=== PATIENT | female | born 1970 | race Two or more races ===

== ENCOUNTER 2016-11-15 05:04 | Emergency (ER) | payer MEDICAID ==
[~2016-11-15] VITALS: Ht 154.9 cm; Wt 65.8 kg
[~2016-11-15 05:04] MED LIST: AMOXICILLI200 MG/5 M PO; ERYTHROMYCIN3.5 GM LEFT EYE; GABAPENTIN300 MG ORAL; KEFLEX500 MG ORAL
[2016-11-15 05:23] VITALS: BP 110/69
--- NOTE | 2016-11-15 05:35 | Emergency Room Report ---
History of Present Illness General Chief Complaint: Abdominal Pain Source: Patient Present Illness HPI Is a 46-year-old female with a history of hysterectomy and abdominal reconstructive surgery. Patient presents with chief complaint abdominal pain. It woke her up at 2 AM. Sharp and crampy. Gassy. Nauseous but no vomiting. No diarrhea. Pain is localized to the right flank area. No dysuria frequency. No fever or chills. It is 01/19 Allergies: Coded Allergies: No Known Allergies (Unverified , 03/26/16) Patient History Past Medical History: see triage record, old chart reviewed Past Surgical History: hysterectomy Pertinent Family History: none Social History: Denies: smoking Last Menstrual Period: N/A Now: No Immunizations: other Reviewed Nursing Documentation: PMH: Agreed, PSxH: Agreed Review of Systems Eye: Denies: blurred vision, eye pain ENT: Denies: ear pain, nose congestion, throat swelling Respiratory: Denies: cough, shortness of breath Cardiovascular: Denies: chest pain, palpitations Gastrointestinal: Reports: abdominal pain, Denies: diarrhea, nausea, vomiting Musculoskeletal: Denies: back pain, joint pain Skin: Denies: rash Neurological: Denies: headache, numbness Endocrine: Denies: increased thirst, increased urine Hematologic/Lymphatic: Denies: easy bruising All Other Systems: negative except mentioned in HPI Physical Exam Vital Signs Date Time Temp Pulse Resp B/P Pulse Ox O2 Delivery O2 Flow Rate FiO2 11/15/16 05:14 97.9 73 18 110/69 98 Room Air vitals normal Sp02 EP Interpretation: reviewed, normal General Appearance: well appearing, no apparent distress, alert Head: normocephalic, atraumatic Eyes: bilateral eye EOMI, bilateral eye PERRL ENT: hearing grossly normal, normal pharynx Neck: full range of motion, supple, no meningismus Respiratory: chest non-tender, lungs clear, normal breath sounds Cardiovascular #1: regular rate, rhythm, no murmur Gastrointestinal: normal bowel sounds, non tender, no mass, no organomegaly, no bruit, non-distended Musculoskeletal: back normal, gait/station normal, normal range of motion Psychiatric: mood/affect normal Skin: warm/dry Medical Decision Making Diagnostic Impression: Primary Impression: Abdominal pain Qualified Codes: R10.84 - Generalized abdominal pain ER Course Patient with abdominal pain. No evidence of obstruction or acute abdomen. No evidence of appendicitis. Pain is lower abdomen. No evidence of gallstone on my exam. Negative Bagley sign. Labs unremarkable. No evidence of UTI. We'll discharge him. Lab Results Impression labs normal CT/MRI/US Diagnostic Results CT/MRI/US Diagnostic Results : Imaging Test Ordered: CT abdomen and pelvis Impression read by radiologist. Negative. Last Vital Signs Date Time Temp Pulse Resp B/P Pulse Ox O2 Delivery O2 Flow Rate FiO2 11/15/16 05:23 97.9 73 18 110/69 98 Room Air Status: improved Disposition: HOME, SELF-CARE Condition: Stable Scripts Naproxen* (NAPROSYN*) 500 Mg Tablet 500 MG ORAL TWICE A DAY, #20 TAB Prov: FORTINO AGUIRRE M.D. 11/15/16 Patient Instructions: Abdominal Pain, Adult Additional Instructions: Followup with your Dr. in 2-3 days. Return if symptom worsen. FORTINO AGUIRRE M.D. Nov 15, 2016 05:35
[2016-11-15] MEDS ORDERED: Ketorolac 30mg Inj IV ONE (05:45)
[2016-11-15 05:46] LABS: APPEARANCE,URINE CLEAR; KETONES,URINE NEGATIVE (NEGATIVE); LEUKOCYTE ESTERASE ,URINE 1+ (NEGATIVE); NITRITE,URINE NEGATIVE (NEGATIVE); PH,URINE 6 (4.5-8.0); PROTEIN,URINE NEGATIVE (NEGATIVE); UROBILINOGEN,URINE NORMAL MG/DL (0.0-1.0)
[2016-11-15 05:52] LABS: RBC,URINE 0-2 /HPF (0 - 2); SQUAMOUS EPITHELIAL CELL,UR FEW /LPF (NONE/OCC)
[2016-11-15 05:53] LABS: BASOPHILS % (AUTO) 1.6 % (0.0-2.0); EOSINOPHILS % (AUTO) 2.5 % (0.0-3.0); MEAN CORPUSCULAR HGB CONC 33.4 G/DL (32.0-36.0); MEAN CORPUSCULAR VOLUME 90 FL (80-99); MEAN PLATELET VOLUME 8.6 FL (6.5-10.1); MONOCYTES % (AUTO) 6.7 % (1.0-10.0); NEUTROPHILS % (AUTO) 52.2 % (45.0-75.0); PLATELET COUNT 180 K/UL (150-450); RED BLOOD COUNT 4.05 M/UL (4.20-5.40); RED CELL DISTRIBUTION WIDTH 12.3 % (11.6-14.8); WHITE BLOOD COUNT 5.8 K/UL (4.8-10.8)
[2016-11-15 06:00] VITALS: BP 114/64
[2016-11-15 06:22] LABS: ALANINE AMINOTRANSFERASE 10 U/L (3-33); ALBUMIN/GLOBULIN RATIO 1.3 (1.0-2.7); ANION GAP 14 (5-15); ASPARTATE AMINO TRANSFERASE 14 U/L (5-40); CALCIUM 9.3 mg/dL (8.6-10.2); CARBON DIOXIDE 26 mEQ/L (20-30); CHLORIDE 99 mEQ/L (98-107); CREATININE 0.7 mg/dL (0.5-0.9); GLOMERULAR FILTRATION RATE > 60 mL/min (>60); HEMOLYSIS 8; LIPASE 34 U/L (< 60); POTASSIUM 3.7 mEQ/L (3.4-4.9); SODIUM 139 mEQ/L (135-145); TOTAL PROTEIN 7.5 g/dL (6.6-8.7)
[2016-11-15] MEDS ORDERED: NAPROSYN500 M1 ORAL (06:26)
[2016-11-15 06:29] VITALS: BP 114/64
--- NOTE | 2016-11-15 09:21 | Diagnostic Imaging Report ---
Indication: Abdominal pain Technique: Continuous helical transaxial imaging of the abdomen and pelvis was obtained from the lung bases to the pubic symphysis. No intravenous contrast was administered. Coronal 2-D reformats were also obtained. Total Dose length Product (DLP): [address] Dose Index Volume (CTDIvol): 15 mGy Comparison: None Findings: Lung bases are clear. Gallbladder is unremarkable. There is no nephrolithiasis. No hydronephrosis demonstrated. Bladder is nondistended. Small radiopaque foci noted in the abdominal wall consistent with previous abdominoplasty. Normal appendix demonstrated. No free fluid or free air demonstrated. Uterus is absent. Evaluation of solid organs is limited on this exam done without IV contrast. Few diverticula are noted in the colon. There is no evidence of diverticulitis. Impression: No acute findings appreciated. Status post abdominal wall surgery. Status post hysterectomy. Colonic diverticula The CT scanner at [facility] is accredited by the [employer] and the scans are performed using dose optimization techniques as appropriate to a performed exam including Automatic Exposure control.
== END 2016-11-15 06:31 | disposition home or self-care (01) ==
LOC: EMR 05:37
DX: R10.84 Generalized abdominal pain (principal); Z90.710 Acquired absence of both cervix and uterus
CPT/HCPCS: 36415; 74176; 80053; 81003; 83690; 85025; 96360; 96374; 96375; 99284; J1885; J2405

== ENCOUNTER 2017-01-22 13:05 | Emergency (ER) | payer MEDICAID ==
[~2017-01-22] VITALS: Ht 154.9 cm; Wt 65.3 kg
[~2017-01-22 13:05] MED LIST changes: +NAPROSYN500 M1 ORAL
[2017-01-22] MEDS ORDERED: SIMVASTATIN40 MG ORAL (13:15)
[2017-01-22 13:23] VITALS: BP 112/69
--- NOTE | 2017-01-22 13:27 | Emergency Room Report ---
History of Present Illness General Chief Complaint: Skin Rash/Abscess Source: Medical Record Present Illness HPI 46-year-old female presents to the emergency department complaining of new onset itchy rash to the face and jaw x2 days. Patient states that she was just recently started on new medication called doxepin for sleep. Patient states that after the first night of taking it she had small rash began on the forehead. Patient states she took medication for the second time in the rash progressed. Denies lesions/rashes elsewhere on the body. Denies new body washes or creams. Denies swelling of the lips, tongue , throat or airway. Denies wheezing, or shortness of breath. Denies recent travel, recent illness or ill contacts. denies blisters, oral lesions, or sloughing of the skin. Denies CP, Palpitations, LOC, AMS, dizziness, Changes in Vision, Sensation, paresthesias, or a sudden severe headache. Allergies: Coded Allergies: No Known Allergies (Unverified , 03/26/16) Patient History Past Medical History: see triage record Past Surgical History: none Pertinent Family History: none Last Menstrual Period: Post Now: No : 3 Para: 3 Reviewed Nursing Documentation: PMH: Agreed, PSxH: Agreed Nursing Documentation-PMH Past Medical History: No History, Except For Review of Systems All Other Systems: negative except mentioned in HPI Physical Exam Vital Signs Date Time Temp Pulse Resp B/P Pulse Ox O2 Delivery O2 Flow Rate FiO2 01/22/17 13:10 98.1 70 18 108/66 96 Room Air Sp02 EP Interpretation: reviewed, normal General Appearance: no apparent distress, alert, GCS 15, non-toxic Head: normocephalic, atraumatic Eyes: bilateral eye PERRL, bilateral eye normal inspection ENT: hearing grossly normal, normal pharynx, no angioedema, normal voice, uvula midline, moist mucus membranes, other - no swelling of the lips or tongue , no oral lesions noted. Neck: full range of motion Respiratory: lungs clear, normal breath sounds, no wheezing, speaking full sentences Cardiovascular #1: regular rate, rhythm, no edema Musculoskeletal: back normal, gait/station normal, normal range of motion Neurologic: alert, oriented x3, responsive, motor strength/tone normal, sensory intact, speech normal Psychiatric: judgement/insight normal, memory normal, mood/affect normal Skin: normal color, warm/dry, well hydrated, rash - multiple erythematous, plaques noted diffusely across the fore head, bilateral cheeks, and right jaw line, lesions are not confluent, no d/c, blisters or vessicles noted, no increased temperature to palpation, Lymphatic: no adenopathy Medical Decision Making PA Attestation Dr. rodarte is my supervising Physician whom patient management has been discussed with. Diagnostic Impression: Primary Impression: Rash and other nonspecific skin eruption ER Course Pt. presents to the ED c/o rash on the forehead, cheek and jaw x 2 days. after starting new medication. Ddx considered but are not limited to cellulitis, scabies, shingles, varicella, dermatitis, urticaria, eczema, tinea Vital signs: are WNL, pt. is afebrile H&PE are most consistent with rash of the face following new medication, no evidence of anaphylaxis or airway compromise. no evidence of secondary bacterial infection. ORDERS: none required at this time, the diagnosis is clinical ED INTERVENTIONS: None required at this time. -PT. education to d/c new medication and to contact prescribing pmd for follow up and change of medications. DISCHARGE: At this time pt. is stable for d/c to home. Will provide printed patient care instructions, and any necessary prescriptions. Care plan and follow up instructions have been discussed with the patient prior to discharge. Last Vital Signs Date Time Temp Pulse Resp B/P Pulse Ox O2 Delivery O2 Flow Rate FiO2 01/22/17 13:23 97.9 74 15 112/69 97 Room Air Disposition: HOME, SELF-CARE Condition: Stable Scripts Hydrocortisone (Hydrocortisone Cream 2.5%) Y Cream.appl 1 APPLIC TP BID, #28.3 GM Prov: Pam Diana 01/22/17 Diphenhydramine Hcl (BENADRYL ALLERGY) 25 Mg Tablet 25 MG PO Q6HR for 7 Days, #28 TAB Prov: Pam Diana 01/22/17 Patient Instructions: Rash Additional Instructions: Take medications as directed. *Discontinue Doxepin Follow up with a Primary Care Provider in 3-5 days, even if your symptoms have resolved. --Please review list of primary care clinics, if you do not already have a primary care provider Return sooner to ED if new symptoms occur, or current symptoms become worse. Do not drink alcohol, drive, or operate heavy machinery while taking Benadryl as this may cause drowsiness. - Please note that this Emergency Department Report was dictated using [employer] cleaner technology software, occasionally this can lead to erroneous entry secondary to interpretation by the dictation equipment. Pam Diana Jan 22, 2017 13:27
[2017-01-22] MEDS ORDERED: BENADRYL ALLERG25 M1 PO (13:28)
[2017-01-22] MEDS ORDERED: HYDROCORTISONE30 G2 TP (13:28)
[2017-01-22 13:36] VITALS: BP 112/69
== END 2017-01-23 13:36 | disposition home or self-care (01) ==
LOC: EMR 13:36
DX: R21 Rash and other nonspecific skin eruption (principal)
CPT/HCPCS: 99284

== ENCOUNTER 2017-09-24 10:36 | Emergency (ER) | payer MEDICAID ==
[~2017-09-24] VITALS: Ht 154.9 cm; Wt 65.8 kg
[~2017-09-24 10:36] MED LIST changes: +BENADRYL ALLERG25 M1 PO; +HYDROCORTISONE30 G2 TP; +SIMVASTATIN40 MG ORAL
[2017-09-24 10:54] VITALS: BP 123/70
[2017-09-24] MEDS ORDERED: ATORVASTATIN CA80 MG ORAL (10:55)
[2017-09-24] MEDS ORDERED: LORazepam Inj 2mg/ml 1ml IV ONE (11:00)
[2017-09-24 11:19] LABS: APPEARANCE,URINE CLEAR; BILIRUBIN, URINE NEGATIVE (NEGATIVE); COLOR,URINE PALE YELLOW; GLUCOSE, URINE (UA) NEGATIVE (NEGATIVE); KETONES,URINE NEGATIVE (NEGATIVE); LEUKOCYTE ESTERASE ,URINE NEGATIVE (NEGATIVE); NITRITE,URINE NEGATIVE (NEGATIVE); PH,URINE 7 (4.5-8.0); PROTEIN,URINE NEGATIVE (NEGATIVE); UROBILINOGEN,URINE NORMAL MG/DL (0.0-1.0)
[2017-09-24 11:20] LABS: BASOPHILS % (AUTO) 1.3 % (0.0-2.0); EOSINOPHILS % (AUTO) 1.3 % (0.0-3.0); HEMATOCRIT 37.2 % (37.0-47.0); HEMOGLOBIN 12.7 G/DL (12.0-16.0); MEAN CORPUSCULAR VOLUME 88 FL (80-99); MONOCYTES % (AUTO) 6.4 % (1.0-10.0); PLATELET COUNT 206 K/UL (150-450); RED BLOOD COUNT 4.24 M/UL (4.20-5.40); RED CELL DISTRIBUTION WIDTH 11.4 % (11.6-14.8); WHITE BLOOD COUNT 5.8 K/UL (4.8-10.8)
[2017-09-24 11:30] LABS: INR 0.9 (0.9-1.1)
[2017-09-24 11:33] LABS: ANION GAP 9 mmol/L (5-15); BLOOD UREA NITROGEN 14 mg/dL (7-18); CALCIUM 9.2 MG/DL (8.5-10.1); CARBON DIOXIDE 28 MMOL/L (21-32); CHLORIDE 101 MMOL/L (98-107); CREATININE 0.5 MG/DL (0.55-1.30); POTASSIUM 3.5 MMOL/L (3.5-5.1); SODIUM 138 MMOL/L (136-145)
[2017-09-24 11:39] LABS: ALANINE AMINOTRANSFERASE 32 U/L (12-78); ALBUMIN 3.9 G/DL (3.4-5.0); ALKALINE PHOSPHATASE 136 U/L (46-116); ASPARTATE AMINO TRANSFERASE 22 U/L (15-37); BILIRUBIN,TOTAL 0.6 MG/DL (0.2-1.0); CREATINE KINASE 104 U/L (26-308)
--- NOTE | 2017-09-24 13:44 | Emergency Room Report ---
History of Present Illness General Chief Complaint: Chest Pain Source: Patient Present Illness HPI The patient presents with chest pain and shortness of breath. Also she feels that her chest is collapsing on her and there is tingling around her mouth and hands. She has a lot of stress at this time. The patient also has indigestion feelings and has a history of reflux. She is supposed be taking omeprazole. The pain/pressure in her chest is rated at a 5/ 10, constant, not radiating. No fevers, cough, sore throat, calf pain, edema. She did not take any medications for this. This began at work. The patient had a hysterectomy and bilateral mastectomies for years ago due to positive family history and tumor markers. She's never had support after that and suffers from depression around this. She also never got any hormone replacement after the total hysterectomy. Her risk factors include high cholesterol. She does not smoke has no diabetes and is not treated for hypertension. She states she is safe at home. Allergies: Coded Allergies: NIACIN (Verified Allergy, Unknown, 09/24/17) Uncoded Allergies: UNKNOWN ANTIBIOTIC (Allergy, Unknown, 09/24/17) Patient History Past Medical History: see triage record Past Surgical History: hysterectomy, other - bilateral masectomies Pertinent Family History: other - breast and ovarian cancer Social History: Denies: smoking, alcohol use, drug use Social History Narrative working Last Menstrual Period: Hysterectomy Reviewed Nursing Documentation: PMH: Agreed; PSxH: Agreed Review of Systems All Other Systems: negative except mentioned in HPI Physical Exam Vital Signs Date Time Temp Pulse Resp B/P (MAP) Pulse Ox O2 Delivery O2 Flow Rate FiO2 09/24/17 10:44 98.2 66 17 114/68 95 Room Air 98.2 Sp02 EP Interpretation: reviewed, normal General Appearance: well appearing, no apparent distress, GCS 15 Head: normocephalic Eyes: bilateral eye normal inspection, bilateral eye PERRL ENT: moist mucus membranes Neck: supple Respiratory: chest non-tender, lungs clear, normal breath sounds, other - masectomies Cardiovascular #1: regular rate, rhythm Cardiovascular #2: 2+ radial (R) Gastrointestinal: normal inspection, normal bowel sounds, non tender, no mass, non-distended Musculoskeletal: back normal, gait/station normal, normal range of motion Neurologic: alert, oriented x3, grossly normal Psychiatric: depressed affect, anxious Skin: normal inspection, warm/dry Medical Decision Making Diagnostic Impression: Primary Impression: Chest pain Qualified Codes: R07.9 - Chest pain, unspecified Additional Impressions: Hyperventilation Anxiety and depression S/P hysterectomy and bilateral masectomy ER Course Patient presents with chest pressure and tingling. DDx: AMI, ACS, costochondritis, PE, anxiety, hyperventilation, reflux amongst others. Evaluation with be with EKG, CXR and labs. Treatment with gentle hydration and a small dose of ativan. EKG without injury. CXR normal. Labs with normal CBC and CMP (glucose minimally elevated), normal troponin. Patient improved with treatment with resolution of symptoms. Discussion of hyperventilation and further treatment of depression/stress. Patient stable for outpatient observation and treatment. Laboratory Tests Test 09/24/17 11:07 White Blood Count 5.8 K/UL (4.8-10.8) Red Blood Count 4.24 M/UL (4.20-5.40) Hemoglobin 12.7 G/DL (12.0-16.0) Hematocrit 37.2 % (37.0-47.0) Mean Corpuscular Volume 88 FL (80-99) Mean Corpuscular Hemoglobin 30.0 PG (27.0-31.0) Mean Corpuscular Hemoglobin Concent 34.2 G/DL (32.0-36.0) Red Cell Distribution Width 11.4 % (11.6-14.8) L Platelet Count 206 K/UL (150-450) Mean Platelet Volume 8.2 FL (6.5-10.1) Neutrophils (%) (Auto) 59.0 % (45.0-75.0) Lymphocytes (%) (Auto) 32.0 % (20.0-45.0) Monocytes (%) (Auto) 6.4 % (1.0-10.0) Eosinophils (%) (Auto) 1.3 % (0.0-3.0) Basophils (%) (Auto) 1.3 % (0.0-2.0) Prothrombin Time 9.8 SEC (9.30-11.50) Prothrombin Time INR 0.9 (0.9-1.1) PTT 30 SEC (23-33) Urine Color Pale yellow Urine Appearance Clear Urine pH 7 (4.5-8.0) Urine Specific [place] 1.005 (1.005-1.035) Urine Protein Negative (NEGATIVE) Urine Glucose (UA) Negative (NEGATIVE) Urine Ketones Negative (NEGATIVE) Urine Occult Blood Negative (NEGATIVE) Urine Nitrite Negative (NEGATIVE) Urine Bilirubin Negative (NEGATIVE) Urine Urobilinogen Normal MG/DL (0.0-1.0) Urine Leukocyte Esterase Negative (NEGATIVE) Sodium Level 138 MMOL/L (136-145) Potassium Level 3.5 MMOL/L (3.5-5.1) Chloride Level 101 MMOL/L (98-107) Carbon Dioxide Level 28 MMOL/L (21-32) Anion Gap 9 mmol/L (5-15) Blood Urea Nitrogen 14 mg/dL (7-18) Creatinine 0.5 MG/DL (0.55-1.30) L Estimate Glomerular Filtration Rate > 60 mL/min (>60) Glucose Level 115 MG/DL (74-106) H Calcium Level 9.2 MG/DL (8.5-10.1) Total Bilirubin 0.6 MG/DL (0.2-1.0) Aspartate Amino Transferase (AST) 22 U/L (15-37) Alanine Aminotransferase (ALT) 32 U/L (12-78) Alkaline Phosphatase 136 U/L (46-116) H Total Creatine Kinase 104 U/L (26-308) Troponin I 0.007 ng/mL (0.000-0.056) Total Protein 8.0 G/DL (6.4-8.2) Albumin 3.9 G/DL (3.4-5.0) Globulin 4.1 g/dL Albumin/Globulin Ratio 1.0 (1.0-2.7) EKG Diagnostic Results Rate: bradycardiac Rhythm: NSR ST Segments: no acute changes Rhythm Strip Diag. Results EP Interpretation: yes Rhythm: no PVC's, no ectopy - marija Chest X-Ray Diagnostic Results Chest X-Ray Diagnostic Results : Chest X-Ray Ordered: Yes # of Views/Limited/Complete: 1 View Indication: Other EP Interpretation: Yes Interpretation: no consolidation, no effusion, no pneumothorax Impression: No acute disease Electronically Signed by: Electronically signed by Dakota Lino MD Last Vital Signs Date Time Temp Pulse Resp B/P (MAP) Pulse Ox O2 Delivery O2 Flow Rate FiO2 09/24/17 14:03 98.2 66 18 106/61 98 Room Air 98.2 Status: improved Disposition: HOME, SELF-CARE Condition: Improved Scripts Mag Hydrox/Al Hydrox/Simeth (MAALOX MAXIMUM STRENGTH SUSP) 355 Ml Oral.susp 30 ML PO Q6HR PRN for reflux pain, #240 ML 1 Refill Prov: Dakota Lino M.D. 09/24/17 Famotidine (PEPCID) 20 Mg Tablet 20 MG ORAL DAILY, #30 TAB 0 Refills Prov: Dakota Lino M.D. 09/24/17 Lorazepam* (ATIVAN*) 0.5 Mg Tablet 0.5 MG ORAL THREE TIMES A DAY, #4 TAB Prov: Dakota Lino M.D. 09/24/17 Referrals: NON PHYSICIAN (PCP) Dakota Lino M.D. Sep 24, 2017 13:44
[2017-09-24] MEDS ORDERED: PEPCID20 MG ORAL (13:50)
[2017-09-24] MEDS ORDERED: MAALOX MAXIMUM355 M1 PO (13:50)
[2017-09-24] MEDS ORDERED: ATIVAN0.5 MG ORAL (13:50)
[2017-09-24 14:00] VITALS: BP 106/61
[2017-09-24 14:03] VITALS: BP 106/61
--- NOTE | 2017-09-25 08:19 | Diagnostic Imaging Report ---
Indication: Chest pain Technique: One view of the chest Comparison: none Findings: Lungs and pleural spaces are clear. Heart size is normal. Surgical clips are scattered over the chest. Impression: No acute process
--- NOTE | 2017-09-25 21:24 | Cardiology Report ---
APPROVED REPORT EKG Measurement Heart [id number] Sinus bradycardia Otherwise normal ECG
== END 2017-09-24 14:10 | disposition home or self-care (01) ==
LOC: EMR 11:20
DX: R07.9 Chest pain, unspecified (principal); R06.4 Hyperventilation; F41.9 Anxiety disorder, unspecified; F32.9 Major depressive disorder, single episode, unspecified; Z90.710 Acquired absence of both cervix and uterus; Z90.13 Acquired absence of bilateral breasts and nipples; Z88.8 Allergy status to other drugs, medicaments and biological substances
CPT/HCPCS: 36415; 71045; 80053; 81003; 82550; 84484; 85025; 85610; 85730; 93005; 96374; 99284

== ENCOUNTER 2019-05-04 06:42 | Emergency (ER) | payer MEDICAID ==
[~2019-05-04] VITALS: Ht 154.9 cm; Wt 67.1 kg
[~2019-05-04 06:42] MED LIST changes: +ATIVAN0.5 MG ORAL; +ATORVASTATIN CA80 MG ORAL; +MAALOX MAXIMUM355 M1 PO; +PEPCID20 MG ORAL
--- NOTE | 2019-05-04 06:58 | Emergency Room Report ---
History of Present Illness General Chief Complaint: Lower Extremity Injury Source: Patient Present Illness HPI Patient 49-year-old female presents after increased left-sided foot pain. she reports injury yesterday after accidentally forcibly flexing her foot. She reports pain to the toes primarily. She does not have any pain near the arch pain is throbbing in nature. She denies any numbness or difficulty with movements. She reports having increased pain with dorsiflexion.Patient had been able to ambulate since injury. She reports having increased pain today. Injury occurred yesterday. Allergies: Coded Allergies: NIACIN (Verified Allergy, Unknown, 09/24/17) Uncoded Allergies: UNKNOWN ANTIBIOTIC (Allergy, Unknown, 09/24/17) Patient History Past Medical History: see triage record Now: No Reviewed Nursing Documentation: PMH: Agreed; PSxH: Agreed Review of Systems All Other Systems: negative except mentioned in HPI Physical Exam Vital Signs Date Time Temp Pulse Resp B/P (MAP) Pulse Ox O2 Delivery O2 Flow Rate FiO2 05/04/19 06:45 97.9 65 17 120/56 (77) 96 Room Air General Appearance: well appearing, no apparent distress, alert, GCS 15, non- toxic Head: normocephalic, atraumatic ENT: hearing grossly normal, normal voice Neck: full range of motion, supple Respiratory: no respiratory distress, speaking full sentences Cardiovascular #1: normal inspection, no edema Gastrointestinal: normal inspection, soft Musculoskeletal: no calf tenderness, other - swelling to toes 1-4 near mcp Neurologic: alert, overedger III-XII nml as tested, EOM palsy, oriented, normal gait Psychiatric: normal inspection, mood/affect normal Skin: other - bruising to foot, near base of toes Medical Decision Making Diagnostic Impression: Primary Impression: Foot fracture, left ER Course Patient presented for foot pain. Differential diagnoses include was was not limited to cellulitis, foreign body, fracture, plantar fasciitis, vascular insufficiency, sprain. X-ray imaging was ordered due to patient's recent trauma.X-ray imaging of the foot showed nondisplaced fracture of the distal portion of the proximal phalanx of the great toe. Patient was placed in a posterior splint. She is advised to keep the foot elevated and follow-up with orthopedics. She is advised to return if she had any worsening of condition. Last Vital Signs Date Time Temp Pulse Resp B/P (MAP) Pulse Ox O2 Delivery O2 Flow Rate FiO2 05/04/19 06:45 97.9 65 17 120/56 (77) 96 Room Air Status: improved Disposition: HOME, SELF-CARE Condition: Stable Albin Ferris MD May 04, 2019 06:58
[2019-05-04] MEDS ORDERED: ATORVASTATIN CA80 MG ORAL (07:01)
[2019-05-04] MEDS ORDERED: ASPIR-LOW81 MG ORAL (07:01)
--- NOTE | 2019-05-04 07:39 | Diagnostic Imaging Report ---
EXAM: XR Left Foot Complete, 3 or More Views CLINICAL HISTORY: PAIN TECHNIQUE: Frontal, lateral and oblique views of the left foot. COMPARISON: No relevant prior studies available. FINDINGS: Bones/joints: Minimally displaced fracture through the first proximal phalanx, extending to the articular surface of the first interphalangeal joint. No dislocation. No other fracture is identified. Joint spaces are preserved. Soft tissues: Minimal soft tissue swelling of the great toe. No radiopaque foreign body. IMPRESSION: Minimally displaced fracture through the first proximal phalanx.
[2019-05-04] MEDS ORDERED: IBUPROFEN400 M1 PO (07:40)
[2019-05-04] MEDS ORDERED: NORCO 5-325 TA1 EACH ORAL (07:40)
[2019-05-04 07:53] VITALS: BP 125/65
== END 2019-05-04 07:53 | disposition home or self-care (01) ==
LOC: EMR 06:57
DX: S92.412A Displaced fracture of proximal phalanx of left great toe, initial encounter for closed fracture (principal); X58.XXXA Exposure to other specified factors, initial encounter; Y92.9 Unspecified place or not applicable
CPT/HCPCS: 73630; Z7502; 99283